=== PATIENT | male | born 1985 | race Caucasian/White ===

== ENCOUNTER 2020-06-17 21:55 | Emergency (ER) | payer MEDICAID ==
[~2020-06-17] VITALS: Ht 185.4 cm; Wt 100.0 kg
[2020-06-17 21:59] VITALS: BP 129/80
[2020-06-17] MEDS ORDERED: acetaminophen 325mg tablet PO ONE (22:30)
== END 2020-06-17 22:33 | disposition home or self-care (01) ==
LOC: ER 21:56
DX: S81.012D Laceration without foreign body, left knee, subsequent encounter (principal); F12.90 Cannabis use, unspecified, uncomplicated; Z98.890 Other specified postprocedural states; Z72.89 Other problems related to lifestyle; Z88.5 Allergy status to narcotic agent; Z88.6 Allergy status to analgesic agent; Z91.018 Allergy to other foods; W45.8XXD Other foreign body or object entering through skin, subsequent encounter
CPT/HCPCS: 99282

== ENCOUNTER 2020-09-20 08:02 | Emergency (ER) | payer MEDICAID ==
[~2020-09-20] VITALS: Ht 185.4 cm; Wt 88.8 kg
[2020-09-20 08:05] VITALS: BP 124/92
[2020-09-20 10:00] LABS: BASOPHILS # (AUTO) 0.1 X10'3 (0-0.2); BASOPHILS % (AUTO) 0.8 % (0-1); EOSINOPHILS # (AUTO) 0.2 X10'3 (0-0.9); EOSINOPHILS % (AUTO) 1.8 % (0-6); HEMATOCRIT 47.3 % (42.0-52.0); HEMOGLOBIN 16.3 g/dl (14.0-17.9); LYMPHOCYTES # (AUTO) 2.7 X10'3 (1.1-4.8); LYMPHOCYTES % (AUTO) 32.1 % (21-51); MEAN CORPUSCULAR HEMOGLOBIN 31.3 PG (27.0-31.0); MEAN CORPUSCULAR HGB CONC 34.4 g/dL (33.0-36.5); MEAN CORPUSCULAR VOLUME 90.9 FL (78-98); MEAN PLATELET VOLUME 7.6 FL (7.4-10.4); MONOCYTES # (AUTO) 0.6 X10'3 (0-0.9); MONOCYTES % (AUTO) 6.6 % (2-12); NEUTROPHILS # (AUTO) 4.9 X10'3 (1.8-7.7); NEUTROPHILS % (AUTO) 58.7 % (42-75); PLATELET COUNT 334 X10'3 (140-440); RED CELL DISTRIBUTION WIDTH 13.2 % (11.5-14.5); WHITE BLOOD COUNT 8.4 X10'3 (4.5-11.0)
[2020-09-20 10:14] LABS: ALANINE AMINOTRANSFERASE 29 U/L (12-78); ALBUMIN 4.1 G/DL (3.4-5.0); ALBUMIN/GLOBULIN RATIO 1.2 (1.1-1.5); ALKALINE PHOSPHATASE 91 IU/L (46-116); ANION GAP 11 (8-16); ASPARTATE AMINO TRANSFERASE 19 U/L (10-37); BILIRUBIN,TOTAL 0.6 MG/DL (0.1-1.0); BLOOD UREA NITROGEN 12 MG/DL (7-18); CALCIUM 8.5 MG/DL (8.5-10.1); CHLORIDE 104 MMOL/L (99-107); CREATININE 0.92 MG/DL (0.60-1.10); GLUCOSE 99 MG/DL (70-104); POTASSIUM 3.7 MMOL/L (3.5-5.1); SODIUM 145 MMOL/L (135-145); TOTAL CARBON DIOXIDE 29.6 MMOL/L (24-32); TOTAL PROTEIN 7.5 G/DL (6.4-8.2); eGFR > 90 ML/MIN
[2020-09-20] MEDS ORDERED: METR500T PO (10:27)
== END 2020-09-20 10:42 | disposition home or self-care (01) ==
LOC: ER 08:03
DX: K52.9 Noninfective gastroenteritis and colitis, unspecified (principal); F12.90 Cannabis use, unspecified, uncomplicated; Z98.890 Other specified postprocedural states; Z72.89 Other problems related to lifestyle; Z88.5 Allergy status to narcotic agent; Z88.6 Allergy status to analgesic agent; Z91.018 Allergy to other foods; Z79.2 Long term (current) use of antibiotics
CPT/HCPCS: 36415; 80053; 85025; 86885; 86900; 86901; 99283

== ENCOUNTER 2021-03-16 22:32 | Emergency (ER) | payer MEDICAID ==
[~2021-03-16] VITALS: Ht 185.4 cm; Wt 92.4 kg
[2021-03-16 22:59] VITALS: BP 132/88
[2021-03-16] MEDS ORDERED: AMOX-422 PO (23:21)
[2021-03-16] MEDS ORDERED: TETanus/Pertussis (Acell)/Diphther VAC/PF (Tdap-Adult) 0.5ml syringe IMVAC ONE (23:35)
== END 2021-03-17 00:11 | disposition home or self-care (01) ==
LOC: ER 22:33
DX: S61.451A Open bite of right hand, initial encounter (principal); S81.851A Open bite, right lower leg, initial encounter; F12.10 Cannabis abuse, uncomplicated; Z87.81 Personal history of (healed) traumatic fracture; W50.3XXA Accidental bite by another person, initial encounter; Y93.89 Activity, other specified; Y92.89 Other specified places as the place of occurrence of the external cause; Y99.8 Other external cause status
CPT/HCPCS: 73130; 90471; 90715; 99283

== ENCOUNTER 2021-05-11 11:22 | Emergency (ER) | payer MEDICAID ==
[~2021-05-11] VITALS: Ht 185.4 cm; Wt 92.0 kg
[2021-05-11 11:49] VITALS: BP 120/92
[2021-05-11 12:28] LABS: BASOPHILS # (AUTO) 0.1 X10'3 (0-0.2); BASOPHILS % (AUTO) 0.5 % (0-1); EOSINOPHILS # (AUTO) 0.1 X10'3 (0-0.9); EOSINOPHILS % (AUTO) 0.8 % (0-6); HEMOGLOBIN 15.7 g/dl (14.0-17.9); LYMPHOCYTES % (AUTO) 22.4 % (21-51); MEAN CORPUSCULAR HEMOGLOBIN 30.8 PG (27.0-31.0); MEAN CORPUSCULAR HGB CONC 34.1 g/dL (33.0-36.5); MEAN CORPUSCULAR VOLUME 90.3 FL (78-98); MEAN PLATELET VOLUME 7.6 FL (7.4-10.4); MONOCYTES # (AUTO) 0.9 X10'3 (0-0.9); MONOCYTES % (AUTO) 6.9 % (2-12); NEUTROPHILS # (AUTO) 9.3 X10'3 (1.8-7.7); NEUTROPHILS % (AUTO) 69.4 % (42-75); PLATELET COUNT 341 X10'3 (140-440); RED BLOOD COUNT 5.09 X10'6 (4.70-6.10); RED CELL DISTRIBUTION WIDTH 12.8 % (11.5-14.5); WHITE BLOOD COUNT 13.4 X10'3 (4.5-11.0)
[2021-05-11 12:35] LABS: ALANINE AMINOTRANSFERASE 35 U/L (12-78); ALBUMIN 4.1 G/DL (3.4-5.0); ALBUMIN/GLOBULIN RATIO 1.1 (1.1-1.5); ALKALINE PHOSPHATASE 104 IU/L (46-116); ANION GAP 8 (8-16); ASPARTATE AMINO TRANSFERASE 14 U/L (10-37); BILIRUBIN,TOTAL 0.6 MG/DL (0.1-1.0); BLOOD UREA NITROGEN 10 MG/DL (7-18); BUN/CREATININE RATIO 11.1 (5.4-32.0); CHLORIDE 103 MMOL/L (99-107); GLUCOSE 91 MG/DL (70-104); POTASSIUM 4.2 MMOL/L (3.5-5.1); SODIUM 141 MMOL/L (135-145); TOTAL CARBON DIOXIDE 30.5 MMOL/L (24-32); TOTAL PROTEIN 7.7 G/DL (6.4-8.2); eGFR > 90 ML/MIN
[2021-05-11] MEDS ORDERED: ketorolac trometh. 30mg/ml inj. IM ONE (13:20)
[2021-05-11 13:47] LABS: D-DIMER < 0.19 MG/L FEU (0-0.50)
== END 2021-05-11 14:17 | disposition home or self-care (01) ==
LOC: ER 11:23
DX: R07.89 Other chest pain (principal); Z88.5 Allergy status to narcotic agent; Z88.6 Allergy status to analgesic agent
CPT/HCPCS: 36415; 71045; 80053; 84484; 85025; 85379; 85610; 93005; 96372; 99285; J1885

== ENCOUNTER 2021-09-05 05:59 | Emergency (ER) | payer MEDICAID ==
[~2021-09-05] VITALS: Ht 185.4 cm; Wt 81.8 kg
[2021-09-05 08:11] LABS: BASOPHILS # (AUTO) 0.1 X10'3 (0-0.2); BASOPHILS % (AUTO) 0.6 % (0-1); EOSINOPHILS # (AUTO) 0.1 X10'3 (0-0.9); EOSINOPHILS % (AUTO) 0.8 % (0-6); HEMATOCRIT 42.2 % (42.0-52.0); HEMOGLOBIN 14.6 g/dl (14.0-17.9); LYMPHOCYTES % (AUTO) 17.7 % (21-51); MEAN CORPUSCULAR HEMOGLOBIN 30.9 PG (27.0-31.0); MEAN CORPUSCULAR HGB CONC 34.5 g/dL (33.0-36.5); MEAN CORPUSCULAR VOLUME 89.6 FL (78-98); MEAN PLATELET VOLUME 7.1 FL (7.4-10.4); MONOCYTES # (AUTO) 0.6 X10'3 (0-0.9); MONOCYTES % (AUTO) 5.1 % (2-12); NEUTROPHILS # (AUTO) 8.4 X10'3 (1.8-7.7); NEUTROPHILS % (AUTO) 75.8 % (42-75); PLATELET COUNT 390 X10'3 (140-440); RED BLOOD COUNT 4.71 X10'6 (4.70-6.10); RED CELL DISTRIBUTION WIDTH 13.5 % (11.5-14.5); WHITE BLOOD COUNT 11.1 X10'3 (4.5-11.0)
[2021-09-05 08:24] LABS: ALANINE AMINOTRANSFERASE 30 U/L (12-78); ALBUMIN 3.6 G/DL (3.4-5.0); ALBUMIN/GLOBULIN RATIO 0.9 (1.1-1.5); ALKALINE PHOSPHATASE 87 IU/L (46-116); ANION GAP 9 (8-16); ASPARTATE AMINO TRANSFERASE 13 U/L (10-37); BILIRUBIN,TOTAL 0.5 MG/DL (0.1-1.0); BLOOD UREA NITROGEN 7 MG/DL (7-18); BUN/CREATININE RATIO 8.9 (5.4-32.0); CALCIUM 8.6 MG/DL (8.5-10.1); CHLORIDE 105 MMOL/L (99-107); CREATININE 0.79 MG/DL (0.60-1.10); GLUCOSE 107 MG/DL (70-104); LIPASE 195 U/L (73-393); POTASSIUM 3.6 MMOL/L (3.5-5.1); SODIUM 142 MMOL/L (135-145); TOTAL CARBON DIOXIDE 27.9 MMOL/L (24-32); TOTAL PROTEIN 7.4 G/DL (6.4-8.2); eGFR > 90 ML/MIN
[2021-09-05 08:34] LABS: CLARITY,URINE CLEAR (Clear); COLOR,URINE YELLOW (Yellow); GLUCOSE, URINE NEGATIVE (Neg); KETONES,URINE TRACE mg/dl (Neg); LEUKOCYTE ESTERASE ,URINE NEGATIVE (Neg); NITRITES, URINE NEGATIVE (Neg); OCCULT BLOOD,URINE NEGATIVE (Neg); PROTEIN,URINE NEGATIVE (Neg); UROBILINOGEN,URINE 0.2 E.U/dL (0.2-1.0)
[2021-09-05 08:35] LABS: UA COLLECTION TYPE CLN CATCH MIDSTREAM
[2021-09-05] MEDS ORDERED: normal saline 1000ML IV soln IVB ONE (11:10)
[2021-09-05] MEDS ORDERED: ketorolac tromethamine 15mg/ml inj. IV ONE (13:55)
[2021-09-05 14:03] VITALS: BP 113/70
[2021-09-05] MEDS ORDERED: ONDA4TAB12 PO (14:08)
[2021-09-05] MEDS ORDERED: ondansetron/PF 4mg/2ml inj IV ONE (14:10)
== END 2021-09-05 14:22 | disposition home or self-care (01) ==
LOC: ER 06:00
DX: K29.00 Acute gastritis without bleeding (principal); Z20.822 Contact with and (suspected) exposure to COVID-19; R07.89 Other chest pain; R51.9 Headache, unspecified; R10.11 Right upper quadrant pain; R11.10 Vomiting, unspecified; F12.90 Cannabis use, unspecified, uncomplicated; Z87.81 Personal history of (healed) traumatic fracture; Z88.8 Allergy status to other drugs, medicaments and biological substances; Z91.018 Allergy to other foods
CPT/HCPCS: 36415; 76700; 80053; 81003; 83690; 84484; 85025; 87635; 93005; 96361; 96374; 96375; 99285; C9803; J1885; J2405; J7030; 99284

== ENCOUNTER 2022-03-25 10:41 | Emergency (ER) | payer MEDICAID ==
[~2022-03-25] VITALS: Ht 185.4 cm; Wt 90.9 kg
[~2022-03-25 10:41] MED LIST: ONDA4TAB12 PO
[2022-03-25 10:56] VITALS: BP 122/91
[2022-03-25] MEDS ORDERED: ketorolac trometh. 30mg/ml inj. IM ONE (11:50)
[2022-03-25] MEDS ORDERED: IBUP-1986 PO (12:36)
== END 2022-03-25 12:53 | disposition home or self-care (01) ==
LOC: ER 10:41
DX: S06.0X0A Concussion without loss of consciousness, initial encounter (principal); F12.10 Cannabis abuse, uncomplicated; Z88.6 Allergy status to analgesic agent; Z87.81 Personal history of (healed) traumatic fracture; Z91.018 Allergy to other foods; Z88.5 Allergy status to narcotic agent; W22.8XXA Striking against or struck by other objects, initial encounter; Y93.89 Activity, other specified; Y92.89 Other specified places as the place of occurrence of the external cause; Y99.8 Other external cause status
CPT/HCPCS: 70450; 96372; 99284; J1885

== ENCOUNTER 2023-03-28 12:09 | Emergency (ER) | payer MEDICAID ==
[~2023-03-28] VITALS: Ht 185.4 cm; Wt 95.5 kg
[~2023-03-28 12:09] MED LIST changes: +IBUP-1986 PO
[2023-03-28 12:26] VITALS: BP 130/76; PULSE 81; RESP 20; TEMP 97.9; O2SAT 100
[2023-03-28 14:54] LABS: BASOPHILS % (AUTO) 0.5 % (0-1); EOSINOPHILS # (AUTO) 0.1 X10'3 (0-0.9); EOSINOPHILS % (AUTO) 1.4 % (0-6); HEMATOCRIT 42.9 % (42.0-52.0); HEMOGLOBIN 14.5 g/dl (14.0-17.9); LYMPHOCYTES # (AUTO) 2.6 X10'3 (1.1-4.8); LYMPHOCYTES % (AUTO) 26.5 % (21-51); MEAN CORPUSCULAR HEMOGLOBIN 31.2 PG (27.0-31.0); MEAN CORPUSCULAR HGB CONC 33.8 g/dL (33.0-36.5); MEAN CORPUSCULAR VOLUME 92.3 FL (78-98); MEAN PLATELET VOLUME 7.8 FL (7.4-10.4); MONOCYTES # (AUTO) 0.7 X10'3 (0-0.9); MONOCYTES % (AUTO) 6.8 % (2-12); NEUTROPHILS # (AUTO) 6.5 X10'3 (1.8-7.7); NEUTROPHILS % (AUTO) 64.8 % (42-75); PLATELET COUNT 281 X10'3 (140-440); RED BLOOD COUNT 4.64 X10'6 (4.70-6.10); RED CELL DISTRIBUTION WIDTH 13.7 % (11.5-14.5); WHITE BLOOD COUNT 9.9 X10'3 (4.5-11.0)
[2023-03-28 15:05] LABS: ALANINE AMINOTRANSFERASE 46 U/L (12-78); ALBUMIN 3.7 G/DL (3.4-5.0); ALBUMIN/GLOBULIN RATIO 1.1 (1.1-1.5); ALKALINE PHOSPHATASE 84 IU/L (46-116); ANION GAP 5 (8-16); ASPARTATE AMINO TRANSFERASE 23 U/L (10-37); BILIRUBIN,TOTAL 0.5 MG/DL (0.1-1.0); BLOOD UREA NITROGEN 13 MG/DL (7-18); BUN/CREATININE RATIO 17.6 (10.0-20.0); CALCIUM 8.6 MG/DL (8.5-10.1); CHLORIDE 104 MMOL/L (99-107); CREATININE 0.74 MG/DL (0.60-1.10); GLUCOSE 105 MG/DL (70-104); POTASSIUM 3.4 MMOL/L (3.5-5.1); SODIUM 137 MMOL/L (135-145); TOTAL CARBON DIOXIDE 27.8 MMOL/L (24-32); eCRCL 156 ML/MIN; eGFR > 90 ML/MIN
[2023-03-28] MEDS ORDERED: NAPR-56 PO (16:03)
== END 2023-03-28 16:40 | disposition home or self-care (01) ==
LOC: ER 12:09
DX: S82.491A Other fracture of shaft of right fibula, initial encounter for closed fracture (principal); V03.99XA Pedestrian with other conveyance injured in collision with car, pick-up truck or van, unspecified whether traffic or nontraffic accident, initial encounter; Y93.89 Activity, other specified; Y92.89 Other specified places as the place of occurrence of the external cause; Y99.8 Other external cause status
CPT/HCPCS: 29530; 36415; 73552; 73564; 73590; 80053; 85025; 99284

== ENCOUNTER 2023-08-01 21:14 | Emergency (ER) | payer MEDICAID ==
[~2023-08-01] VITALS: Ht 185.4 cm; Wt 90.9 kg
[2023-08-01 21:38] LABS: BASOPHILS # (AUTO) 0.2 X10'3 (0-0.2); BASOPHILS % (AUTO) 1.1 % (0-1); EOSINOPHILS # (AUTO) 0.1 X10'3 (0-0.9); EOSINOPHILS % (AUTO) 0.5 % (0-6); HEMATOCRIT 46.2 % (42.0-52.0); HEMOGLOBIN 15.9 g/dl (14.0-17.9); LYMPHOCYTES # (AUTO) 3.1 X10'3 (1.1-4.8); LYMPHOCYTES % (AUTO) 22.3 % (21-51); MEAN CORPUSCULAR HEMOGLOBIN 30.6 PG (27.0-31.0); MEAN CORPUSCULAR HGB CONC 34.4 g/dL (33.0-36.5); MEAN PLATELET VOLUME 7.3 FL (7.4-10.4); MONOCYTES # (AUTO) 0.9 X10'3 (0-0.9); MONOCYTES % (AUTO) 6.7 % (2-12); NEUTROPHILS # (AUTO) 9.7 X10'3 (1.8-7.7); NEUTROPHILS % (AUTO) 69.4 % (42-75); PLATELET COUNT 320 X10'3 (140-440); RED BLOOD COUNT 5.19 X10'6 (4.70-6.10); RED CELL DISTRIBUTION WIDTH 13.3 % (11.5-14.5)
[2023-08-01 22:15] LABS: ALBUMIN 4.2 G/DL (3.4-5.0); ANION GAP 11 (8-16); BLOOD UREA NITROGEN 13 MG/DL (7-18); BUN/CREATININE RATIO 11.3 (10.0-20.0); CALCIUM 9.1 MG/DL (8.5-10.1); CHLORIDE 105 MMOL/L (99-107); CREATININE 1.15 MG/DL (0.60-1.10); GLUCOSE 88 MG/DL (70-104); POTASSIUM 3.8 MMOL/L (3.5-5.1); SODIUM 142 MMOL/L (135-145); TOTAL CARBON DIOXIDE 26.3 MMOL/L (24-32); eCRCL 100 ML/MIN; eGFR 72 ML/MIN
[2023-08-01 23:19] VITALS: BP 149/92; PULSE 90; RESP 16; TEMP 98; O2SAT 98
== END 2023-08-01 23:20 | disposition home or self-care (01) ==
LOC: ER 21:15
DX: S09.8XXA Other specified injuries of head, initial encounter (principal); F12.90 Cannabis use, unspecified, uncomplicated; Z88.8 Allergy status to other drugs, medicaments and biological substances; Z79.899 Other long term (current) drug therapy; W18.39XA Other fall on same level, initial encounter; Y93.89 Activity, other specified; Y92.89 Other specified places as the place of occurrence of the external cause; Y99.8 Other external cause status
CPT/HCPCS: 36415; 70450; 71045; 72125; 80048; 84484; 85025; 93005; 99285

== ENCOUNTER 2023-11-23 23:47 | Emergency (ER) | payer MEDICAID ==
[~2023-11-23] VITALS: Ht 185.4 cm; Wt 88.6 kg
[~2023-11-23 23:47] MED LIST changes: +ONDA-243 PO; -ONDA4TAB12 PO
[2023-11-23 23:59] VITALS: BP 133/83; PULSE 79; RESP 14; TEMP 99.1; O2SAT 99
[2023-11-24] MEDS: ibuprofen 200mg tablet PO ONE (00:54)
[2023-11-24] MEDS: acetaminophen 325mg tablet PO ONE (00:54)
[2023-11-24 01:07] LABS: STREP A SCREEN POSITIVE (Neg)
[2023-11-24] MEDS ORDERED: AMOX875T2 PO (01:19)
== END 2023-11-24 01:31 | disposition home or self-care (01) ==
LOC: ER 23:48
DX: J02.9 Acute pharyngitis, unspecified (principal); F12.90 Cannabis use, unspecified, uncomplicated; Z91.018 Allergy to other foods; Z88.5 Allergy status to narcotic agent; Z79.1 Long term (current) use of non-steroidal anti-inflammatories (NSAID); Z79.899 Other long term (current) drug therapy
CPT/HCPCS: 87880; 99283

== ENCOUNTER 2024-01-12 11:36 | Emergency (ER) | payer MEDICAID ==
[~2024-01-12] VITALS: Ht 185.4 cm; Wt 90.9 kg
[2024-01-12 13:19] LABS: BASOPHILS % (AUTO) 0.2 % (0-1); EOSINOPHILS % (AUTO) 0.2 % (0-6); HEMATOCRIT 47.3 % (42.0-52.0); HEMOGLOBIN 15.8 g/dl (14.0-17.9); LYMPHOCYTES # (AUTO) 0.6 X10'3 (1.1-4.8); LYMPHOCYTES % (AUTO) 4.5 % (21-51); MEAN CORPUSCULAR HEMOGLOBIN 30.9 PG (27.0-31.0); MEAN CORPUSCULAR HGB CONC 33.4 g/dL (33.0-36.5); MEAN CORPUSCULAR VOLUME 92.3 FL (78-98); MEAN PLATELET VOLUME 7.6 FL (7.4-10.4); MONOCYTES # (AUTO) 0.4 X10'3 (0-0.9); NEUTROPHILS # (AUTO) 13.2 X10'3 (1.8-7.7); NEUTROPHILS % (AUTO) 92.1 % (42-75); PLATELET COUNT 297 X10'3 (140-440); RED BLOOD COUNT 5.13 X10'6 (4.70-6.10); WHITE BLOOD COUNT 14.3 X10'3 (4.5-11.0)
[2024-01-12 13:40] LABS: ALANINE AMINOTRANSFERASE 26 U/L (12-78); ALBUMIN 3.8 G/DL (3.4-5.0); ALBUMIN/GLOBULIN RATIO 1.2 (1.1-1.5); ALKALINE PHOSPHATASE 83 IU/L (46-116); ANION GAP 4 (8-16); ASPARTATE AMINO TRANSFERASE 12 U/L (10-37); BILIRUBIN,TOTAL 0.7 MG/DL (0.1-1.0); BLOOD UREA NITROGEN 9 MG/DL (7-18); BUN/CREATININE RATIO 9.9 (10.0-20.0); CALCIUM 8.7 MG/DL (8.5-10.1); CHLORIDE 106 MMOL/L (99-107); CREATININE 0.91 MG/DL (0.60-1.10); GLUCOSE 115 MG/DL (70-104); LIPASE 21 U/L (16-77); POTASSIUM 3.9 MMOL/L (3.5-5.1); SODIUM 142 MMOL/L (135-145); TOTAL CARBON DIOXIDE 32.2 MMOL/L (24-32); TOTAL PROTEIN 7.1 G/DL (6.4-8.2); eCRCL 126 ML/MIN; eGFR > 90 ML/MIN
[2024-01-12] MEDS: dicyclomine 10 MG capsule PO ONE (14:03)
[2024-01-12] MEDS: metoclopramide 5 mg/ml inj IV ONE (14:04)
[2024-01-12] MEDS: normal saline 1000ml 1,000 ML IV ONE (14:04)
[2024-01-12] MEDS: diphenhydrAMINE 50 mg/ml inj IV ONE (14:04)
[2024-01-12] MEDS: ketorolac trometh 30MG/ML vial 30 MG/ML VIAL IV ONE (14:04)
[2024-01-12] MEDS ORDERED: HYDR-3965 PO (15:53)
[2024-01-12] MEDS ORDERED: AMOX-580 PO (15:53)
[2024-01-12] MEDS: piperacillin/tazo 3.375gm/50ml 50 ML IV STA (15:56)
[2024-01-12 16:37] VITALS: BP 115/67; PULSE 71; RESP 16; TEMP 98; O2SAT 98
== END 2024-01-12 16:39 | disposition home or self-care (01) ==
LOC: ER 11:37
DX: A08.39 Other viral enteritis (principal); F12.90 Cannabis use, unspecified, uncomplicated; Z88.8 Allergy status to other drugs, medicaments and biological substances; Z91.018 Allergy to other foods; Z79.1 Long term (current) use of non-steroidal anti-inflammatories (NSAID); Z79.899 Other long term (current) drug therapy; Z98.890 Other specified postprocedural states; Z20.822 Contact with and (suspected) exposure to COVID-19
CPT/HCPCS: 36415; 74176; 76700; 80053; 83690; 85025; 87811; 96361; 96365; 96375; 99285; J1200; J1885; J2543; J2765; J7030

== ENCOUNTER 2025-01-07 19:53 | Emergency (ER) | payer MEDICAID ==
[2025-01-07] MEDS ORDERED: LIDOcaine 1% W/epiNEPHrine 1:200,000 10ml vial IJ STA (20:58)
[2025-01-07] MEDS: LIDOcaine 1% W/epiNEPHrine 1:100,000 20ml vial IJ STA (21:24)
--- NOTE | 2025-01-07 21:59 | Physician Documentation ---
History of Present Illness ~ Chief Complaint: Laceration Stated Complaint: L THIGH LAC Time Seen by MD: 20:23 OK to notify your PCP?: Yes Primary Medical Doctor: batsheva Source: patient Mode of Arrival: POV Exam Limitations: no limitations HPI 39-year-old male presents with laceration to left by approximately 3 cm long and very superficial. Bleeding is controlled with bandage. 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 He has no thoughts of harming himself or anybody else. He had a tetanus vaccine within the past 5 years. Tetanus Within 5 Years: Yes Medication Reconciliation Allergies: Coded Allergies: Coconut (Verified Allergy, Unknown, 01/12/24) codeine (Verified Allergy, Unknown, 01/12/24) tramadol (Verified Allergy, Unknown, 01/12/24) Scheduled Ibuprofen (Ibuprofen), 1 TAB PO Q8H ONDANSETRON ODT 4mg tablet (Ondansetron Odt), 1 TABLET PO TID Past Medical History Past Medical History: Extremity Fracture Past Surgical History: brain surgery, orthopedic surgeries Alcohol Use: None Drug Use: marijuana Lives with: Family Lives In: Home Occupation: employed Review of Systems All Other Systems at this time: Reviewed and Negative Physical Exam Vital Signs: RN Vital Signs have been reviewed: Yes, Temperature: 98.5, Heart Rate: 76, Respiratory Rate: 16, BP: 129/88, Pulse Oximetry: 98 Oxygen Flow Rate: 0 Pulse Oximetry Reflects: adequate oxygenation Physical Exam General: Alert, no distress. HEENT: No injection, moist mucous membranes. Neck: Full range of motion. Respiratory: No respiratory distress, equal chest rise and fall. Chest: No accessory muscle use. Cardiovascular: Regular rate and rhythm. Gastrointestinal: Nondistended. Extremities: Normal range of motion, no deformity. Neurologic: Oriented x4. Psychiatric: Normal mood and affect. Skin: 3 cm superficial laceration to anterior left upper thigh. Procedures Laceration/Wound Repair Laceration : Location: Left anterior thigh Length (cm): 3 Anesthesia: Lidocaine w/ Epi Volume Anesthetic (mls): 2 Prep: irrigated by nurse Debrided: minimal Undermining: none Margins: flaps aligned Foreign Body: not identified Repaired: skin Wound Repaired With: sutures Suture Size/Type: 4-0, ethilon Number of Superficial Sutures: 4 Layer Closure?: No Dressing Applied: simple, non-adherent Splint Applied?: No Sling Applied?: No Tolerated Procedure Well?: yes, no complications Progress Results/Orders Results/Orders Orders - CORTNEY SHAH Laceration/I&D Tray Set Up (01/07/25 ) Completed Orders - CORTNEY SHAH Lidocaine 1% W/Epi 1:100,000 (Xylocaine (01/07/25 21:14) Medications Received in ER Medications (Trade) Dose Ordered Sig/Landon Route PRN Reason Start Time Stop Time Status Last Admin Dose Admin (Xylocaine 1%-EPI 1:100,000) 5 ml ONCE STAT IJ 01/07/25 21:14 01/07/25 21:15 DC 01/07/25 21:24 5 ML Vital Signs 01/07/25 20:06 Temp 98.5 Pulse 76 Resp 16 B/P (MAP) 129/88 Pulse Ox 98 O2 Flow Rate 0 Medical Decision Making Additional info obtained from: family Findings He has a small superficial laceration which I repaired with 4 sutures. His last tetanus vaccine was in the past 5 years. 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 We did discuss wh en to return in 2 monitor for signs or symptoms of infection. I have not placed him on any antibiotic at this time with a feel this is a low risk wound. He was given follow up instructions as well as return instructions. Differential Dx:Considerations: Include: Fracture, Hematoma, Neurovascular injury, Retained foreign body Departure Disposition: 01 HOME / SELF CARE / HOMELESS Impression: Primary Impression: Laceration Condition: Stable Discharge Instructions: Laceration Care, Adult, [id number] Additional Instructions: Monitor for signs of infection such as worsening pain, redness around the site that is traveling up the leg or fevers or pus-like discharge and return as you may need an antibiotic. Keep wound clean and dry. You have 4 sutures which will need to be removed in 10 days. You can get this done at your primary care provider, urgent care or local emergency department. Return back here for any new or worsening symptoms. Referrals: NO PRIMARY CARE PROVIDER (PCP) Education Educated: Patient Educated regarding: diagnosis, treatment, prognosis, need for follow up Additional Comment Medical Screen Exam This patient recieved a medical screening examination. After reviewing the individual's medical complaints with presenting symptoms and performing an appropriate physical examination, it was determined that no immediate life- threatening emergency medical condition is present. This individual is also not a women having contractions. Signature Scribe Signature: . Attestation: Scribed for Cortney Shahp by Cortney Bravo NP . 01/07/25 22:02 Parts of this note were created using [employer] voice recognition software program. While efforts were made to correct any mistakes made by this voice recognition software program, nonsensical phrases may remain in this note. In addition, there may be errors and syntax, grammar, content and spelling. CORTNEY SHAH [facility] Jan 07, 2025 21:59
[2025-01-07 22:04] VITALS: BP 126/82; PULSE 74; RESP 16; TEMP 98.6; O2SAT 99
== END 2025-01-07 22:05 | disposition home or self-care (01) ==
LOC: ER 19:54
DX: S71.112A Laceration without foreign body, left thigh, initial encounter (principal); F12.90 Cannabis use, unspecified, uncomplicated; Z88.5 Allergy status to narcotic agent; Z91.018 Allergy to other foods; Z79.899 Other long term (current) drug therapy; W26.9XXA Contact with unspecified sharp object(s), initial encounter; Y93.89 Activity, other specified; Y92.89 Other specified places as the place of occurrence of the external cause; Y99.8 Other external cause status
CPT/HCPCS: 12002; 99282; J3490; J7030; A6449

== ENCOUNTER 2025-01-17 10:16 | Emergency (ER) | payer MEDICAID ==
[~2025-01-17] VITALS: Ht 185.4 cm; Wt 88.7 kg
[2025-01-17 10:38] VITALS: BP 135/96; PULSE 82; RESP 16; O2SAT 99
--- NOTE | 2025-01-17 12:08 | Physician Documentation ---
History of Present Illness ~ Chief Complaint: Suture Removal Stated Complaint: SUTURE REMOVAL Time Seen by MD: 10:52 OK to notify your PCP?: Yes Primary Medical Doctor: batsheva Source: patient, RN/ HPI Patient is seen today with complaints of needing for simple sutures removed from his left thigh. Patient states her placed 10 days ago. Patient denies any fever or chills in his no other concern or complaint at this time. Tetanus Within 5 Years: Yes Medication Reconciliation Allergies: Coded Allergies: Coconut (Verified Allergy, Unknown, 01/12/24) codeine (Verified Allergy, Unknown, 01/12/24) tramadol (Verified Allergy, Unknown, 01/12/24) Scheduled Ibuprofen (Ibuprofen), 1 TAB PO Q8H ONDANSETRON ODT 4mg tablet (Ondansetron Odt), 1 TABLET PO TID Past Medical History Past Medical History: Extremity Fracture Past Surgical History: brain surgery, orthopedic surgeries Smoking Status: Never smoker Alcohol Use: None Drug Use: marijuana Lives with: Family Lives In: Home Occupation: employed Review of Systems Constitutional: Denies: chills, fever, weakness Eyes: Denies: pain, blurred vision ENT: Denies: ear pain, nose pain, throat pain, mouth pain Respiratory: Denies: cough, shortness of breath Cardiovascular: Denies: chest pain, palpitations Gastrointestinal: Denies: abdominal pain, nausea, vomiting Genitourinary: Denies: burning, dysuria Male Genitalia: Denies: penile discharge, testicular pain Neurological: Denies: headache, dizziness Musculoskeletal: Denies: pain, swelling Integumentary: Denies: rash, lesions Allergic/Immunologic: Denies: hives, itching Hematologic/Lymphatic: Denies: no symptoms reported Psychiatric: Denies: depression, anxiety Physical Exam Vital Signs: Temperature: 97.4, Source: Temporal, Heart Rate: 82, Respiratory Rate: 16, BP: 135/96, Pulse Oximetry: 99, Weight: 88.700 Oxygen Flow Rate: 0 Physical Exam General: Awake and Alert, no acute distress. HEENT: Conjunctiva pink, Sclera clear, Mucus Membranes moist. Neck: Supple without masses and tenderness. Resp: Unlabored. Lungs clear to auscultation bilaterally. Extremities: No cyanosis,clubbing or edema. Skin: Patient on exam has for simple sutures in place of a well-healed wound that is approximately 1.5 cm in length of the left anterior thigh. There was no sign of erythema or induration or sign of infection. Progress Results/Orders Results/Orders Vital Signs 01/17/25 10:38 Temp 97.4 Pulse 82 Resp 16 B/P (MAP) 135/96 Pulse Ox 99 O2 Flow Rate 0 Medical Decision Making Findings Patient is seen today with complaints of needing for simple sutures removed from his left thigh. Patient states her placed 10 days ago. Patient denies any fever or chills in his no other concern or complaint at this time. For simple sutures were removed today by myself without incident. Patient tolerated well. Patient will return to ED with any worsening, concerning or changing symptoms. Departure Disposition: 01 HOME / SELF CARE / HOMELESS Impression: Primary Impression: Visit for suture removal Condition: Improved Discharge Instructions: Suture Removal, Care After Referrals: NO PRIMARY CARE PROVIDER (PCP) Signature Scribe Signature: No scribe Attestation: No scribe JOSE A LOJA PAC Jan 17, 2025 12:07
[2025-01-17 12:23] VITALS: TEMP 97.4
== END 2025-01-17 12:24 | disposition home or self-care (01) ==
LOC: ER 10:17
DX: S71.112D Laceration without foreign body, left thigh, subsequent encounter (principal); F12.90 Cannabis use, unspecified, uncomplicated; Z91.018 Allergy to other foods; Z88.5 Allergy status to narcotic agent; Z79.899 Other long term (current) drug therapy; X58.XXXD Exposure to other specified factors, subsequent encounter
CPT/HCPCS: 99281